=== PATIENT | male | born 1950 | race Caucasian/White ===

== ENCOUNTER 2022-02-11 00:09 | Emergency (ER) | payer MEDICARE, BC ==
[2022-02-11] MEDS ORDERED: Acetaminophen/oxyCODONE 325-5 MG Tab PO ONE (00:10)
[2022-02-11] MEDS ORDERED: Acetaminophen/oxyCODONE 325-5 MG Tab PO STA (01:00)
== END 2022-02-11 01:51 | disposition home or self-care (01) ==
LOC: FB.ED 00:09
DX: M79.604 Pain in right leg (principal); Z79.899 Other long term (current) drug therapy
CPT/HCPCS: 99283; A9270-GY

== ENCOUNTER 2022-11-03 07:06 | Day surgery (SDC) | payer MEDICARE, BC ==
[2022-11-03] MEDS ORDERED: Propofol 200 MG/20 ML SDV IV ONE (07:07)
[2022-11-03] MEDS ORDERED: Lactated Ringers 1,000 ML IV SCH (07:15)
[2022-11-03] MEDS ORDERED: Sodium Chloride 0.9% 10 ML Syringe FLUSH PRN (07:15)
== END 2022-11-03 10:01 | disposition home or self-care (01) ==
LOC: FB.SDS 07:06
PROVIDERS: ATTEND Surgery
DX: K57.30 Diverticulosis of large intestine without perforation or abscess without bleeding (principal); K64.1 Second degree hemorrhoids; Z79.899 Other long term (current) drug therapy
CPT/HCPCS: 00812-QZ; J2704; J7120